=== PATIENT | male | born 1950 | race Caucasian/White ===

== ENCOUNTER 2017-04-22 18:14 | Emergency (ER) | payer OTHER ==
[~2017-04-22] VITALS: Ht 180.3 cm; Wt 94.0 kg
[~2017-04-22 18:14] MED LIST: LIPI40TA PO; TOPR50TA PO
[2017-04-22 18:17] VITALS: BP 188/101; PULSE 65; RESP 17; TEMP 97.8; O2SAT 96
--- NOTE | 2017-04-22 18:24 | PD ---
Physical Exam Date Seen by Provider: Apr 22, 2017 Time Seen by Provider: 18:22 Narrative 66 yo male that presents to the ED for evaluation of irregular heart beat. Has had a fib twice before. For the past 24 hours has been irregular. Per patient it feels different from prior. No other symptoms. No chest pain, SOB. Palpitations is his only symptom. Takes metoprolol. Came from airplane from [place]. Started while on the airplane. Vitals are stable. Awaiting bed placement. Data Data Last Documented VS Vital Signs Date Time Temp Pulse Resp B/P Pulse Ox O2 Delivery O2 Flow Rate FiO2 04/22/17 18:17 97.8 65 17 188/101 96 MDM Medical Record Reviewed: Yes Supervised Visit with [facility]: No Venkatesh Stinson Apr 22, 2017 18:24
--- NOTE | 2017-04-22 19:39 | PD ---
HPI Chief Complaint: Cardiac Complaint Time Seen by Provider: 19:39 Travel History International Travel<30 days: No Contact w/Intl Traveler<30days: No Traveled to known affect area: No History of Present Illness HPI 66 year old male with history of afib and htn presents to the ED for evaluation of sensation of a irregular heartbeat. Patient states that he feels like it goes fast and then slow. Denies any pain. Denies a shortness of breath. No dizziness or lightheaded sensation. No diaphoresis. Patient states over the last he has [place] the [place]. He had flown from [place] to [place] when he began to have sensation. He states he has had A. fib in the past and this felt similar to that but slower. He has no other symptoms to report at this time. He is not currently having any symptoms. Patient has clinical services consultant [place]. [facility] Past Medical History Blood Disorders: No Anxiety: Yes Depression: No Heart Rhythm Problems: Yes (AFIB) Cancer: No Cardiovascular Problems: Yes (afib; htn) High Cholesterol: Yes Chemotherapy: No Diabetes: No Diminished Hearing: No Endocrine: No GERD: Yes Glaucoma: No Genitourinary: No Hiatal Hernia: No Hypertension: Yes Immune Disorder: No Neurologic: No Psychiatric: No Reproductive: No Respiratory: No Radiation Therapy: No Thyroid Disease: No Ulcer: No Past Surgical History Pacemaker: No Social History Alcohol Use: Yes (SOCIAL) Tobacco Use: No Substance Use: No Allergies-Medications (Allergen,Severity, Reaction): Coded Allergies: No Known Allergies (Verified , 04/22/17) Reported Meds & Prescriptions Reported Meds & Active Scripts Active Reported Omeprazole 20 Mg Tab 20 Mg PO DAILY Toprol XL (Metoprolol Succinate) 100 Mg Tab 100 Mg PO DAILY Lipitor (Atorvastatin Calcium) 40 Mg Tab 40 Mg PO HS Aspirin 81 (Aspirin) 81 Mg Tabdr 81 Mg PO DAILY Review of Systems Except as stated in HPI: all other systems reviewed are Neg Physical Exam Narrative GENERAL: Well-nourished male patient, in no acute distress SKIN: Focused skin assessment warm/dry. HEAD: Atraumatic. Normocephalic. EYES: Pupils equal and round. No scleral icterus. No injection or drainage. ENT: No nasal bleeding or discharge. Mucous membranes pink and moist. NECK: Trachea midline. No JVD. CARDIOVASCULAR: Regular rate and rhythm. No murmur appreciated. RESPIRATORY: No accessory muscle use. Clear to auscultation. Breath sounds equal bilaterally. GASTROINTESTINAL: Abdomen soft, non-tender, nondistended. Hepatic and splenic margins not palpable. MUSCULOSKELETAL: No obvious deformities. No clubbing. No cyanosis. No edema. NEUROLOGICAL: Awake and alert. No obvious cranial nerve deficits. Motor grossly within normal limits. Normal speech. PSYCHIATRIC: Appropriate mood and affect; insight and judgment normal. Data Data Last Documented VS Vital Signs Date Time Temp Pulse Resp B/P Pulse Ox O2 Delivery O2 Flow Rate FiO2 04/22/17 21:37 59 16 185/90 99 Room Air 04/22/17 18:17 97.8 Orders Electrocardiogram (04/22/17 ) Basic Metabolic Panel (Bmp) (04/22/17 20:02) Ckmb (Isoenzyme) Profile (04/22/17 20:02) Complete Blood Count With Diff (04/22/17 20:02) Magnesium (Mg) (04/22/17 20:02) Prothrombin Time / Inr (Pt) (04/22/17 20:02) Act Partial Throm Time (Ptt) (04/22/17 20:02) Troponin I (04/22/17 20:02) Chest, Single Ap (04/22/17 20:02) Ecg Monitoring (04/22/17 20:02) Bilateral Bp Monitoring (04/22/17 20:02) Iv Access Insert/Monitor (04/22/17 20:02) Oximetry (04/22/17 20:02) Oxygen Administration (04/22/17 20:02) Sodium Chloride 0.9% Flush (Ns Flush) (04/22/17 20:15) Sodium Chlor 0.9% 1000 Ml Inj (Ns 1000 M (04/22/17 20:15) Labs Laboratory Tests Test 04/22/17 20:05 White Blood Count 5.7 TH/MM3 Red Blood Count 3.84 MIL/MM3 Hemoglobin 12.3 GM/DL Hematocrit 37.1 % Mean Corpuscular Volume 96.5 FL Mean Corpuscular Hemoglobin 32.0 PG Mean Corpuscular Hemoglobin 33.2 % Concent Red Cell Distribution Width 14.4 % Platelet Count 141 TH/MM3 Mean Platelet Volume 8.8 FL Neutrophils (%) (Auto) 61.2 % Lymphocytes (%) (Auto) 24.9 % Monocytes (%) (Auto) 11.3 % Eosinophils (%) (Auto) 2.1 % Basophils (%) (Auto) 0.5 % Neutrophils # (Auto) 3.5 TH/MM3 Lymphocytes # (Auto) 1.4 TH/MM3 Monocytes # (Auto) 0.6 TH/MM3 Eosinophils # (Auto) 0.1 TH/MM3 Basophils # (Auto) 0.0 TH/MM3 CBC Comment DIFF FINAL Differential Comment Prothrombin Time 11.8 SEC Prothromb Time International 1.1 RATIO Ratio Activated Partial 28.4 SEC Thromboplast Time Sodium Level 142 MEQ/L Potassium Level 3.9 MEQ/L Chloride Level 110 MEQ/L Carbon Dioxide Level 24.7 MEQ/L Anion Gap 7 MEQ/L Blood Urea Nitrogen 20 MG/DL Creatinine 1.03 MG/DL Estimat Glomerular Filtration 73 ML/MIN Rate Random Glucose 87 MG/DL Calcium Level 8.2 MG/DL Magnesium Level 2.1 MG/DL Total Creatine Kinase 91 U/L Troponin I LESS THAN 0.02 NG/ML MDM Medical Decision Making Medical Screen Exam Complete: Yes Emergency Medical Condition: Yes Medical Record Reviewed: Yes Differential Diagnosis Palpitations versus PVCs versus electrolyte abnormality versus dehydration versus anxiety versus arrhythmia Narrative Course 66-year-old male presents to emergency department for evaluation. Patient appears well and without distress. He is not currently having any symptoms. CBC and BMP are without acute concern. Troponin is 0.02. I discussed the patient my attending physician who is also reviewed the EKG and patient's history. Patient will be discharged home at this time. He does have a clinical services consultant who agrees to contact mild follow-up with. He agrees to return immediately with any acute worsening symptoms. Diagnosis Primary Impression: Intermittent palpitations Additional Impression: History of atrial fibrillation Referrals: Director Of Social Media Marketing Primary Care Physician Patient Instructions: General Instructions, Palpitations (ED) Additional Instructions: Maintain adequate oral hydration Follow-up with primary care provider Contact her clinical services consultant tomorrow for follow-up Return immediately with any acute worsening of symptoms Med/Other Pt SpecificInfo: No Change to Meds Disposition: 01 DISCHARGE HOME Condition: Stable OcampoKyra finnegan JAYCEE Apr 22, 2017 19:39
[2017-04-22] MEDS ORDERED: OMEP20TA PO (19:49)
[2017-04-22] MEDS ORDERED: ASPI-110 PO (19:49)
[2017-04-22] MEDS ORDERED: TOPR100T PO (19:49)
[2017-04-22] MEDS ORDERED: LIPI40TA PO (19:49)
[2017-04-22] MEDS ORDERED: SODIUM CHLORIDE 0.9% FLUSH 10 ML FLUSH IVF PRN (20:15)
[2017-04-22] MEDS ORDERED: SODIUM CHLOR 0.9% 1000 ML INJ 1,000 ML IV ONE (20:15)
[2017-04-22 20:32] LABS: AUTOMATED NEUTROPHIL # 3.5 TH/MM3 (1.8-7.7); BASOPHIL % 0.5 % (0.0-2.0); EOSINOPHIL # 0.1 TH/MM3 (0-0.4); EOSINOPHIL % 2.1 % (0.0-4.0); HEMATOCRIT 37.1 % (39.0-51.0); HEMO FLAGS DIFF FINAL; LYMPH % 24.9 % (9.0-44.0); LYMPHOCYTE # 1.4 TH/MM3 (1.0-4.8); MEAN CELL VOLUME 96.5 FL (80.0-100.0); MEAN CORPUSCULAR HGB CONC 33.2 % (32.0-36.0); MONO % 11.3 % (0.0-8.0); NEUT % 61.2 % (16.0-70.0); PLATELET COUNT 141 TH/MM3 (150-450); RED BLOOD COUNT 3.84 MIL/MM3 (4.50-5.90); RED CELL DISTRIBUTION WIDTH 14.4 % (11.6-17.2); WHITE BLOOD COUNT 5.7 TH/MM3 (4.0-11.0)
[2017-04-22 20:33] LABS: ANION GAP 7 MEQ/L (5-15); BICARBONATE 24.7 MEQ/L (21.0-32.0); BLOOD UREA NITROGEN 20 MG/DL (7-18); CHLORIDE 110 MEQ/L (98-107); GLOMERULAR FILTRATION RATE 73 ML/MIN (>89); MAGNESIUM 2.1 MG/DL (1.5-2.5); POTASSIUM 3.9 MEQ/L (3.5-5.1); SODIUM (NA) 142 MEQ/L (136-145)
[2017-04-22 20:46] LABS: APTT (PATIENT) 28.4 SEC (24.3-30.1); INTERNATIONAL NORMALIZED RATIO 1.1 RATIO; PROTHROMBIN TIME - PATIENT 11.8 SEC (9.8-11.6)
[2017-04-22 20:47] LABS: CREATINE KINASE 91 U/L (39-308)
--- NOTE | 2017-04-22 21:01 | RADRPT ---
EXAM DATE/TIME: 04/22/2017 20:15 [facility] COMPARISON: No previous studies available for comparison. INDICATIONS : Short of breath. MEDICAL HISTORY : None. SURGICAL HISTORY : None. ENCOUNTER: Initial ACUITY: 1 day PAIN SCORE: 0/10 LOCATION: Bilateral chest FINDINGS: Heart size is normal. There is some minimal linear density identified at the left base likely repres enting some minimal atelectasis. The right lung is clear. No effusion is seen. CONCLUSION: Suspected minimal atelectasis at the lateral left lung base. Rafy Winn MD on April 22, 2017 at 20:42 Board Certified Radiologist. This report was verified electronically.
[2017-04-22 21:37] VITALS: BP 185/90; PULSE 59; RESP 16; O2SAT 99
--- NOTE | 2017-04-23 23:27 | EKG ---
Date Performed: 04/22/2017 Time Performed: 18:30:07 PTAGE: 66 years EKG: Sinus rhythm NORMAL ECG PREVIOUS TRACING : 09/17/2007 10.50 Compared to prior tracing no significant change DOCTOR: Mackenzie Boyd Interpretating Date/Time 04/23/2017 23:27:00
== END 2017-04-22 21:48 | disposition home or self-care (01) ==
LOC: NEPE 18:14
DX: R00.2 Palpitations (principal); I48.91 Unspecified atrial fibrillation; E78.00 Pure hypercholesterolemia, unspecified; I10 Essential (primary) hypertension
CPT/HCPCS: 71010; 80048; 82550; 83735; 84484; 85025; 85610; 85730; 93005; 96360; 99285; J7030